=== PATIENT | male | born 1985 | race African-American/Black ===

== ENCOUNTER 2020-04-27 23:37 | Emergency (ER) | payer MEDICAID ==
[~2020-04-27] VITALS: Ht 170.2 cm; Wt 74.8 kg
[2020-04-27 23:55] VITALS: BP 102/64
[2020-04-28] MEDS ORDERED: IBUPROFEN600 M1 ORAL (00:08)
[2020-04-28] MEDS ORDERED: LIDODERM700 M1 TOPIC (00:08)
[2020-04-28] MEDS ORDERED: ROBAXIN-750750 MG PO (00:08)
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
[2020-04-28 00:28] VITALS: BP 102/64
== END 2020-04-28 00:28 | disposition home or self-care (01) ==
LOC: EMR 23:58
DX: S39.012A Strain of muscle, fascia and tendon of lower back, initial encounter (principal); V43.62XA Car passenger injured in collision with other type car in traffic accident, initial encounter; Y92.410 Unspecified street and highway as the place of occurrence of the external cause
CPT/HCPCS: 99282